=== PATIENT | female | born 1955 | race Two or more races ===

== ENCOUNTER 2017-08-26 14:50 | Emergency (ER) | payer SELFPAY ==
--- NOTE | 2017-08-26 15:00 | PDOC ---
Rapid Medical Evaluation Time Seen by Provider: 08/26/17 14:58 Medical Evaluation: Allergies Allergy/AdvReac Type Severity Reaction Status Date / Time No Known Allergies Allergy Verified 08/26/17 14:58 I have performed a brief in-person evaluation of this patient. The patient presents with a chief complaint of: lower lip swelling and pain atraumatic x 3 weeks Pertinent physical exam findings: mildly swollen and ecchymotic left lower lip. tactile fever last night I have ordered the following: nothing The patient will proceed to the ED for further evaluation. Discharge Disposition - Diagnosis Lip swelling - Referrals - Patient Instructions - Post Discharge Activity
[2017-08-26 15:02] VITALS: BP 168/99; PULSE 77; TEMP 100; BMI 29.2
--- NOTE | 2017-08-26 16:48 | PDOC ---
History of Present Illness - General Chief Complaint: Pain Stated Complaint: HEADACHE Time Seen by Provider: 08/26/17 14:58 History Source: Patient Exam Limitations: No Limitations - History of Present Illness Initial Comments: 08/26/17 16:51 This is a 61-year-old woman with past medical history of hypertension presents emergency Department with 3 weeks of mouth pain and 3 days of subjective fevers , cough and posttussive headache. Patient states she began to notice some pain in her mouth along the cheeks next to the upper teeth. Patient also with a dry productive cough with yellow sputum. Patient reports increased headache after coughing and also has chest pain status post coughing. She denies shortness of breath, nausea, vomiting, abdominal pain. Past History - Past Medical History Allergies/Adverse Reactions: Allergies Allergy/AdvReac Type Severity Reaction Status Date / Time No Known Allergies Allergy Verified 08/26/17 14:58 Home Medications: Ambulatory Orders Amoxicillin/Potassium Clav [Amox-Clav 875-125 mg Tablet] 875 mg PO ASDIR Mag Hydrox/Alh/Smc/Dpha/Lido [Magic Mouthwash *Sjr Formula* -] 5 ml MM Q6HPO # 240 mouthwash 08/26/17 Telmisartan/Hydrochlorothiazid [Telmisartan-Hctz 40-12.5 mg Tb] 12.5 mg PO ASDIR 08/26/17 COPD: No - Suicide/Smoking/Psychosocial Hx Smoking History: Never smoked Review of Systems - Review of Systems Able to Perform ROS?: Yes Is the patient limited Slovenian proficient: No Constitutional: Yes: See HPI HEENTM: Yes: See HPI Respiratory: Yes: See HPI Cardiac (ROS): No: Symptoms Reported ABD/GI: No: Symptoms Reported : No: Symptoms Reported Musculoskeletal: No: Symptoms Reported Integumentary: No: Symptoms Reported Neurological: Yes: See HPI Endocrine: Yes: See HPI. No: Symptoms Reported Hematologic/Lymphatic: No: Symptoms Reported *Physical Exam - Vital Signs Last Vital Signs Temp Pulse Resp BP Pulse Ox 100 F H 77 19 168/99 100 08/26/17 14:58 08/26/17 14:58 08/26/17 14:58 08/26/17 14:58 08/26/17 14:58 - Physical Exam General Appearance: Yes: Appropriately Dressed. No: Apparent Distress HEENT: positive: TMs Normal, Other (Oral leukoplakia present. ecchymosis to left lower lip) Neck: positive: Trachea midline, Supple Respiratory/Chest: positive: Lungs Clear, Normal Breath Sounds. negative: Respiratory Distress, Accessory Muscle Use Cardiovascular: positive: Regular Rhythm, Regular Rate. negative: Murmur Gastrointestinal/Abdominal: positive: Normal Bowel Sounds, Soft. negative: Tender Musculoskeletal: positive: Normal Inspection. negative: CVA Tenderness Extremity: positive: Normal Inspection Integumentary: positive: Normal Color, Dry, Warm Neurologic: positive: population health manager II-XII NML intact, Fully Oriented, Alert, Normal Mood/ Affect, Normal Response, Motor Strength 08/24 ED Treatment Course - RADIOLOGY Radiology Studies Ordered: Category Date Time Status CHEST PA & LAT [RAD] Stat Radiology 08/26/17 16:34 Ordered Medical Decision Making - Medical Decision Making 08/26/17 16:56 A/P: 61-year-old woman with past medical history of hypertension who presents emergency Department with mouth pain for 3 weeks and dry cough headache and pleuritic chest pain for 2 days Oropharynx with leukoplakia noted to the buccal surfaces adjacent to the upper mandible No bleeding noted Ecchymosis noted to left lower lip Poor fitting dentures noted to upper Respirations even and unlabored Lungs clear to auscultation bilaterally RRR. S1 and S2 present. No murmur, rub or gallop noted. Abdomen soft nontender nondistended. Cranial nerves II through XII intact. Gait steady Chest x-ray Follow-up with dentist as an outpatient for oral leukoplakia 08/26/17 17:14 Chest x-rays read by Dr. Whittington: Lung cardiomegaly without evidence of acute lung disease We'll discharge the patient home to follow-up with her dentist reevaluate denture fitting 08/26/17 17:20 Present leukoplakia discussed with patient who understands that this may be from ill fitting dentures but it also could be a precursor to cancer. Patient verbalizes understanding of need to follow-up with her dentist for evaluation. *DC/Admit/Observation/Transfer Diagnosis at time of Disposition: Lip swelling, Leukoplakia of oral cavity Upper respiratory infection Qualifiers: URI type: unspecified URI Qualified Code(s): J06.9 - Acute upper respiratory infection, unspecified - Discharge Dispostion Disposition: HOME Condition at time of disposition: Stable Admit: No - Prescriptions Prescriptions: Mag Hydrox/Alh/Smc/Dpha/Lido [Magic Mouthwash *Sjr Formula* -] 5 ml MM Q6HPO # 240 mouthwash - Referrals - Patient Instructions Printed Discharge Instructions: DI for Leukoplakia Additional Instructions: Return to emergency department for oral bleeding, worsening cough, shortness of breath, chest pain, dizziness or any other concerns. Print Language: ALBANIAN - Post Discharge Activity
== END 2017-08-26 17:31 | disposition home or self-care (01) ==
LOC: JERFT 14:50
DX: K13.21 Leukoplakia of oral mucosa, including tongue (principal); J06.9 Acute upper respiratory infection, unspecified
CPT/HCPCS: 71046-TC-FY; 99281-25